=== PATIENT | female | born 1955 | race Caucasian/White ===

== ENCOUNTER 2017-06-15 12:53 | Emergency (ER) | payer OTHER ==
[2017-06-15 12:59] VITALS: BP 145/74; PULSE 60; TEMP 97.9; BMI 23.9
[2017-06-15 13:28] LABS: URINE APPEARANCE SLCLOUDY; URINE BILIRUBIN NEGATIVE (NEGATIVE); URINE BLOOD 1+ (NEGATIVE); URINE COLOR LTYELLOW; URINE GLUCOSE (UA) NEGATIVE (NEGATIVE); URINE KETONE NEGATIVE (NEGATIVE); URINE NITRITE NEGATIVE (NEGATIVE); URINE PROTEIN NEGATIVE (NEGATIVE); URINE UROBILINOGEN NEGATIVE mg/dL (0.2-1.0)
[2017-06-15 13:29] LABS: URINE LEUK ESTERASE 2+ (NEGATIVE)
--- NOTE | 2017-06-15 13:29 | PDOC ---
History of Present Illness - General Chief Complaint: Urinary Problem Stated Complaint: POSSIBLE UTI Time Seen by Provider: 06/15/17 13:12 History Source: Patient - History of Present Illness Timing/Duration: reports: other Past History - Past Medical History Allergies/Adverse Reactions: Allergies Allergy/AdvReac Type Severity Reaction Status Date / Time Penicillins Allergy Severe Swelling Verified 06/15/17 12:59 nitrofurantoin Allergy Intermediate Rash Verified 06/15/17 12:59 macrocrystalline [From Macrodantin] Home Medications: Ambulatory Orders Aspirin [ASA -] 81 mg PO DAILY 11/10/14 Calcium Carbonate/Vitamin D3 [Calcium + Vitamin D Tablet] 1 each PO DAILY Esomeprazole Mag Trihydrate [Nexium] 40 mg PO DAILY 11/10/14 Multivitamins [Tab-A-Vit -] 1 tab PO DAILY 11/10/14 Atorvastatin Ca [Lipitor] 20 mg PO HS 06/15/17 Ciprofloxacin [Cipro -] 500 mg PO Q12H #14 tablet 06/15/17 COPD: No Hypercholesterolemia: Yes - Immunization History TDAP Vaccination: No Immunization Up to Date: No - Suicide/Smoking/Psychosocial Hx Smoking History: Never smoked Have you smoked in the past 12 months: No Information on smoking cessation initiated: No Hx Alcohol Use: No Drug/Substance Use Hx: No Substance Use Type: None Review of Systems - Review of Systems Constitutional: No: Chills, Fever ABD/GI: No: Nausea, Vomiting, Abdominal cramping *Physical Exam - Vital Signs Last Vital Signs Temp Pulse Resp BP Pulse Ox 97.9 F 60 19 145/74 99 06/15/17 12:56 06/15/17 12:56 06/15/17 12:56 06/15/17 12:56 06/15/17 12:56 - Physical Exam General Appearance: Yes: Appropriately Dressed. No: Apparent Distress HEENT: positive: Normal Voice Neck: positive: Supple Respiratory/Chest: negative: Respiratory Distress Gastrointestinal/Abdominal: positive: Soft. negative: Tender Musculoskeletal: negative: CVA Tenderness Extremity: positive: Normal Inspection Integumentary: positive: Dry, Warm Neurologic: positive: Fully Oriented, Alert, Normal Mood/Affect Medical Decision Making - Medical Decision Making 06/15/17 13:26 61-year-old female, history of hyperlipidemia, GERD and frequent UTIs, here with urinary frequency and possible pain with urination x several days. No flank pain, nausea, vomiting, fever or chills. No history of kidney stones. See exam UTI No e/o pyelo -ua w/ 2+ LE and 1+ bld -dc w/ cipro (first dose given in ED 05/13 inclement weather), f/u with [facility] 06/15/17 13:32 *DC/Admit/Observation/Transfer Diagnosis at time of Disposition: Dysuria - Discharge Dispostion Condition at time of disposition: Good - Prescriptions Prescriptions: Ciprofloxacin [Cipro -] 500 mg PO Q12H #14 tablet - Referrals Referrals: Ginger Zimmerman MD [Primary Care Provider] - - Patient Instructions Printed Discharge Instructions: Urinary Tract Infection Additional Instructions: Take medication as directed You can call for urine culture in 2-3 days at [phone] - Post Discharge Activity
[2017-06-15 13:32] LABS: EPI CELLS RARE /HPF (FEW); URINE MUCUS RARE
[2017-06-15] MEDS ORDERED: CIPROFLOXACIN 500 MG TABLET (RESTRICTED TO ID) PO ONE (13:32)
== END 2017-06-15 13:51 | disposition home or self-care (01) ==
LOC: JERFT 12:53
DX: R30.0 Dysuria (principal); E78.5 Hyperlipidemia, unspecified; K21.9 Gastro-esophageal reflux disease without esophagitis
CPT/HCPCS: 81003; 81015; 87086; 87186; 99281-25